=== PATIENT | female | born 1985 | race Caucasian/White ===

== ENCOUNTER 2016-04-08 13:40 | Inpatient (IN) | payer OTHER ==
--- NOTE | 2016-04-08 14:14 | EDPHY ---
H & P Smoking Status: Never smoked Time Seen by Provider: 04/08/16 13:55 HPI/ROS: CHIEF COMPLAINT: Depression, feeling suicidal HISTORY OF PRESENT ILLNESS: 30-year-old female presents to the emergency department voluntarily feeling depressed and suicidal. Patient has been depressed for quite some time. They recently increased her Prozac to 30 mg daily. She states that she has been contemplating suicide and her plan is to put a plastic bag over her head with a container of Helium. No previous suicide attempts in the past. She has been hospitalized for mental illness in 2003 and 2011. Denies homicidal ideation. Denies auditory or visual hallucinations. Currently she has no physical complaints. She does smoke marijuana however no other substance abuse. REVIEW OF SYSTEMS: Constitutional: No fever, no chills. Eyes: No double or blurry vision. ENT: No sore throat. Respiratory: No cough, no shortness of breath. Cardiac: No chest pain. Gastrointestinal: No abdominal pain, vomiting or diarrhea. Genitourinary: No dysuria. Musculoskeletal: No neck or back pain. Skin: No rashes. Neurological: No headache. (Sandra Abbott) Past Medical/Surgical History: Depression (Sandra Abbott) Social History: Works as an production administrative assistant at [employer] (Sandra Abbott) Physical Exam: General Appearance: Alert, no distress. Eyes: Pupils equal and round. Extraocular motions are all intact. ENT: Mouth: Mucous membranes moist. Respiratory: No wheezing, rhonchi, or rales, lungs are clear to auscultation. Cardiovascular: Regular rate and rhythm. Gastrointestinal: Abdomen is soft and nontender, no masses, no rebound or guarding, bowel sounds normal. Neurological: Alert and oriented x 3, cranial nerves II through XII grossly intact Skin: Warm and dry, no rashes. Musculoskeletal: Nontender to palpate along the cervical, thoracic or lumbar spine. Neck is supple. Extremities: Full range of motion and no peripheral edema. Psychiatric: Patient is oriented X 3, there is no agitation. (Sandra Abbott) Constitutional: Initial Vital Signs Temperature (C) 36.4 C 04/08/16 13:41 Heart Rate 90 04/08/16 13:41 Respiratory Rate 16 04/08/16 13:41 Blood Pressure 131/85 H 04/08/16 13:41 O2 Sat (%) 98 04/08/16 13:41 O2 Delivery Mode Room Air O2 (L/minute) 98 Allergies/Adverse Reactions: Penicillins Allergy (Intermediate, Verified 04/08/16 13:45) Hives Home Medications: Medication Instructions Recorded FLUOXETINE HCL [FLUOXETINE HCL] 10 mg PO DAILY 04/08/16 Fluoxetine HCl [Fluoxetine HCl] 20 mg PO DAILY 04/08/16 Medical Decision Making ED Course/Re-evaluation: 30-year-old female presents to the emergency department feeling depressed and suicidal. She has been placed on a detainer by myself and once she is medically clear will be evaluated by mental health. (Sandra Abbott) Care assumed by me from JUJU Abbott. Patient is pending mental health evaluation. Patient seen by mental health. She requires placement. I have completed the M1 hold. They will for placement. 2030 patient has been accepted to [facility] with [address] under . I have completed the EMTALA. (Yonathan Velazquez) Differential Diagnosis: Depression including functional and major depression, situational depression, medication side effect, drugs and alcohol abuse. (Sandra Abbott) Care Turn Over: Care will be turned over to Dr. Velazquez for disposition and plan. (Sandra Abbott ) - Data Points Laboratory Results: Laboratory Results 04/08/16 14:35 04/08/16 14:35 04/08/16 04/08/16 04/08/16 14:35 14:35 14:35 WBC 5.07 10^3/uL 10^3/uL (3.80-9.50) RBC 4.71 10^6/uL 10^6/uL (4.18-5.33) Hgb 9.3 g/dL L g/dL (12.6-16.3) Hct 31.8 % L % (38.0-47.0) MCV 67.5 fL L fL (81.5-99.8) MCH 19.7 pg L pg (27.9-34.1) MCHC 29.2 g/dL L g/dL (32.4-36.7) RDW 17.1 % H % (11.5-15.2) Plt Count 370 10^3/uL 10^3/uL (150-400) MPV 10.2 fL fL (8.7-11.7) Neut % (Auto) 55.6 % % (39.3-74.2) Lymph % (Auto) 32.7 % % (15.0-45.0) [place] % (Auto) 9.7 % % (4.5-13.0) Eos % (Auto) 1.2 % % (0.6-7.6) Baso % (Auto) 0.8 % % (0.3-1.7) Nucleat RBC Rel Count 0.0 % % (0.0-0.2) Absolute Neuts (auto) 2.82 10^3/uL 10^3/uL (1.70-6.50) Absolute Lymphs (auto) 1.66 10^3/uL 10^3/uL (1.00-3.00) Absolute Monos (auto) 0.49 10^3/uL 10^3/uL (0.30-0.80) Absolute Eos (auto) 0.06 10^3/uL 10^3/uL (0.03-0.40) Absolute Basos (auto) 0.04 10^3/uL 10^3/uL (0.02-0.10) Absolute Nucleated RBC 0.00 10^3/uL 10^3/uL (0-0.01) Immature Gran % 0.0 % % (0.0-1.1) Immature Gran # 0.00 10^3/uL 10^3/uL (0.00-0.10) Platelet Estimate ADEQUATE (ADEQ) Large Platelets PRESENT H Hypochromasia 3+ H Microcytic Cells 2+ H Elliptocytes 1+ H Acanthocytes (Spur) 2+ H Smear Review By Pending Sodium 138 mEq/L mEq/L (134-144) Potassium 3.8 mEq/L mEq/L (3.5-5.2) Chloride 103 mEq/L mEq/L (97-110) Carbon Dioxide 23 mEq/l mEq/l (22-31) Anion Gap 12 mEq/L mEq/L (8-16) BUN 11 mg/dL mg/dL (7-23) Creatinine 0.9 mg/dL mg/dL (0.6-1.0) Estimated GFR > 60 Glucose 84 mg/dL mg/dL (70-100) Calcium 9.9 mg/dL mg/dL (8.5-10.4) Urine Opiates Screen NEGATIVE ng/mL ng/mL (NEGATIVE) Urine Barbiturates NEGATIVE ng/mL ng/mL (NEGATIVE) Ur Phencyclidine Scrn NEGATIVE ng/mL ng/mL (NEGATIVE) Ur Amphetamines Screen NEGATIVE ng/mL ng/mL (NEGATIVE) U Benzodiazepines Scrn NEGATIVE ng/mL ng/mL (NEGATIVE) Urine Cocaine Screen NEGATIVE ng/mL ng/mL (NEGATIVE) U Marijuana (THC) Screen NEGATIVE ng/mL ng/mL (NEGATIVE) Departure - Departure Disposition: [facility] IP Clinical Impression: Suicidal ideation Depression Qualifiers: Depression Type: unspecified Qualified Code(s): F32.9 - Major depressive disorder, single episode, unspecified
[2016-04-08 15:37] LABS: ADD DIFF? NO; ADD MORPH? YES; ADD SCAN? NO; ATYPICAL LYMPHOCYTE FLAG 20 (0-99); FRAGMENT RBC FLAG 20 (0-99); HEMATOCRIT 31.8 % (38.0-47.0); HEMOGLOBIN 9.3 g/dL (12.6-16.3); LEFT SHIFT FLG 0 (0-99); LIPEMIA HEMOLYSIS FLAG 70 (0-99); MEAN CELL HEMOGLOBIN 19.7 pg (27.9-34.1); MEAN CELL HEMOGLOBIN CONCENTR. 29.2 g/dL (32.4-36.7); MEAN PLATELET VOLUME 10.2 fL (8.7-11.7); PLATELET CLUMPS FLAG 0 (0-99); PLATELET COUNT 370 10^3/uL (150-400); RED BLOOD CELL COUNT 4.71 10^6/uL (4.18-5.33); RED CELL DISTRIBUTION WIDTH 17.1 % (11.5-15.2)
[2016-04-08 15:41] LABS: ANION GAP 12 mEq/L (8-16); CALCIUM 9.9 mg/dL (8.5-10.4); CARBON DIOXIDE 23 mEq/l (22-31); CHLORIDE 103 mEq/L (97-110); CREATININE 0.9 mg/dL (0.6-1.0); GLOMERULAR FILTRATION RATE > 60; GLUCOSE 84 mg/dL (70-100); POTASSIUM 3.8 mEq/L (3.5-5.2); SODIUM 138 mEq/L (134-144)
[2016-04-08 15:42] LABS: MEAN CELL VOLUME 67.5 fL (81.5-99.8)
[2016-04-08 16:06] LABS: PHENCYCLIDINE URINE BCH < 6 ng/ml (NEGATIVE); PHENCYCLIDINE URINE BCH NEGATIVE (NEGATIVE); TETRAHYDROCANNABINOL URINE 46 ng/mL (NEGATIVE); TETRAHYDROCANNABINOL URINE NEGATIVE (NEGATIVE)
[2016-04-08 16:17] LABS: ACANTHOCYTES 2+; ELLIPTOCYTES 1+; HYPOCHROMIA 3+; LARGE PLATELETS PRESENT; MICROCYTES 2+; PLATELET ESTIMATE ADEQUATE (ADEQ)
[2016-04-08] MEDS ORDERED: ACETAMINOPHEN 325 MG TAB PO PRN ×2 (20:34→21:57)
[2016-04-08] MEDS ORDERED: OLANZapine DISINTEGR 10 MG TAB PO PRN ×2 (20:34→21:57)
[2016-04-08] MEDS ORDERED: LORazepam 0.5 MG TAB PO PRN (20:34)
[2016-04-08] MEDS ORDERED: MAGNESIUM HYDROXIDE 30 ML UDCUP PO PRN ×2 (20:34→21:57)
[2016-04-08] MEDS ORDERED: NICOTINE POLACRILEX 2 MG GUM B PRN ×2 (20:34→21:57)
[2016-04-08] MEDS ORDERED: MAG HYDROX/AL HYDROX/SIMETH 30 ML UDCUP PO PRN ×2 (20:34→21:57)
[2016-04-09] MEDS: LORazepam 0.5 MG TAB PO PRN (00:12)
[2016-04-09] MEDS: DULoxetine 20 MG CAP PO SCH (11:48)
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
[2016-04-09 18:55] LABS: HEMATOCRIT 32.5 % (38.0-47.0)
--- NOTE | 2016-04-09 19:07 | BCON ---
INTERNAL MEDICINE CONSULTATION DATE OF CONSULTATION: 04/09/[address] Frye. REASON FOR REFERRAL: Medical clearance for inpatient behavioral health stay. HISTORY OF PRESENT ILLNESS: Ms. Grey came to the emergency department with worsening depression and suicidal ideation. She was evaluated by the mental health team and admitted for further psychiatric care. She currently denies any acute medical complaints. PAST MEDICAL HISTORY: She reports a history of pulmonary embolus when she was taking control pills, and she has a history of an Achilles tendon injury and surgical repair. She also reports that she has had chronic anemia. MEDICATIONS: She was only taking fluoxetine. ALLERGIES: There is an allergy listed to penicillins. SOCIAL HISTORY: She lives with a roommate. She has a stable boyfriend. She has been a marijuana user, but over the past 6 weeks decreased from daily to weekly. She uses occasional alcohol. She is not a tobacco smoker. Her alcohol use had increased in the weeks leading up to her presentation with depression. FAMILY HISTORY: Noncontributory other than mention of a brother with anxiety. REVIEW OF SYSTEMS: She had some weight gain while she was smoking more marijuana, but that has resolved. She denies fevers, chills, cough, dyspnea, chest pain, palpitations, nausea, vomiting, constipation, diarrhea, dysuria, or urinary frequency. She denies joint pain or joint swelling. She does report fatigue. Otherwise, a 10-point review of systems is negative. PHYSICAL EXAMINATION: VITAL SIGNS: Blood pressure is 134/80, heart rate is 95 , respiratory rate is 14, oxygen saturation is 100% on room air, and temperature is 36.4 degrees centigrade. Her weight is 65.8 kg for a body mass index of 23.4. GENERAL: This is a well-nourished, well-developed woman who appears her chronologic age. Cooperative and in no acute distress. HEENT: Extraocular movements are intact. Pupils are equal, round, and reactive to light. Mucous membranes are moist. Dentition is in good condition. NECK: Supple. HEART: There is a regular rate and rhythm, with no murmurs, rubs, or gallops. LUNGS: Clear to auscultation bilaterally. ABDOMEN: Soft, nontender , and nondistended, with normoactive bowel sounds. EXTREMITIES: There is no cyanosis, clubbing, or edema. NEUROLOGIC: She is alert and oriented x3. Cranial nerves 2-12 are grossly intact. There is no focal weakness. Sensation is intact to light touch, and her gait is within normal limits. LABORATORY STUDIES: Drawn in the emergency department: CBC revealed anemia, with a hemoglobin of 9.3 and a hematocrit of 31.8. It was microcytic, with an MCV of 67.5. She had abnormal cells, with large platelets, hypochromasia, microcytic cells, elliptocytes, and acanthocytes. Serum chemistries revealed normal renal function and electrolytes. Toxicology screen in the urine was negative for any substances of abuse. ASSESSMENT AND RECOMMENDATIONS: 1. Mental health issues. Pending further evaluation and management per Psychiatry and the mental health team. 2. Microcytic anemia. Her red cell indices and abnormal red cell morphology are consistent with thalassemia. However, she also might have iron deficiency. She does report that she has heavy menstrual cycles. I have ordered an iron panel, a ferritin, a repeat CBC, and a reticulocyte count to rule out iron deficiency. If she does not have iron deficiency and she has a high reticulocyte count, then her presentation would be consistent with thalassemia. She could follow up with her primary care provider and have genetic testing and hemoglobin electrophoresis to establish the diagnosis. If she is iron deficient, then the likely source would be menstrual bleeding, and she could follow up with gynecology or primary care regarding that issue. I see no medical contraindications to the patient's continued stay on the inpatient behavioral health unit or to any psychiatric medications or procedures. Thank you very much for including me in the care of this patient. Please do not hesitate to contact me or the hospitalist service should there be need for further medical evaluation. /[id number]/MODL MTDD
[2016-04-10] MEDS: DULoxetine 20 MG CAP PO SCH ×2 (08:16→20:48)
--- NOTE | 2016-04-10 11:00 | SOAPPROG ---
SOAP Progress Note Assessment/Plan: Assessment: Pt is a 30 y/o S C female with a long hx of depression with multiple failed med trials and inconsistent psych follow up who was put on PRzac 5 weeks ago and recently had an increase in dose to 30mg QD and had increasing SI with a plan. She was put on an M1 for danger to self. She was started on Cymbalta 20mg DAILY 04/09/14 and reports feeling tried and has a mild tremor which she stated she had with the Prozac but that it went away after 2 weeks. Plan:Pt's M1 is up tomorrow-she will think about signing in vol or d/c'ing if she feels safe will increase Cymbalta to 20mg BID 04/10/16 10:56 Subjective: "Depressed but not worse than usual." Objective: Vital Signs Temp Pulse Resp BP Pulse Ox 36.4 C 78 14 118/78 100 04/10/16 06:15 04/10/16 06:15 04/10/16 06:15 04/10/16 06:15 04/10/16 06:15 Laboratory Results 04/09/16 15:00 Pt is A+O x4 mood--"Depressed" affect=appr do S/H I no A/V H' slept 10.5 hours appetite and energy level are low memory-intact no sx of psychosis/yoel thoughts-logical, coherent speech-wnl no FRITZ I/J-good - Time Spent With Patient Time Spent With Patient: 20' - Pending Discharge Pending Discharge Within 24 Hours: No Pending Discharge Within 48 Hours: No ICD10 Worksheet Patient Problems: Problems Problem Status Onset Depression Acute Suicidal ideation Acute
[2016-04-10 12:58] LABS: HEMATOCRIT 31.6 % (38.0-47.0); HEMOGLOBIN 9.1 g/dL (12.6-16.3); MEAN CELL HEMOGLOBIN 19.4 pg (27.9-34.1); RED BLOOD CELL COUNT 4.7 10^6/uL (4.18-5.33); RED CELL DISTRIBUTION WIDTH 17.2 % (11.5-15.2)
[2016-04-10 12:59] LABS: MEAN CELL HEMOGLOBIN CONCENTR. 28.8 g/dL (32.4-36.7); MEAN CELL VOLUME 67.2 fL (81.5-99.8)
[2016-04-10 17:46] LABS: % SATURATION 3 % (20-55); TOTAL IRON BINDING CAPACITY 450 ug/dL (260-490)
[2016-04-10 18:13] LABS: FERRITIN - BCH 4.8 ng/mL (6.2-264.0)
--- NOTE | 2016-04-10 19:50 | SOAPPROG ---
SOAP Progress Note Assessment/Plan: Assessment: Iron-deficiency anemia. Starting iron supplement FeSO4 325 mg QD. She should continue for at least a month and then be retested. She should follow-up with PCP or experience specialist re menstrual blood loss, or other possible sources of blood loss. She does not have thalassemia. Discussed with her nurse and asked im to inform her. 04/10/16 19:47 Subjective: Reviewed labs. Very iron-deficient. Objective: Vital Signs Temp Pulse Resp BP Pulse Ox 36.4 C 78 14 118/78 100 04/10/16 06:15 04/10/16 06:15 04/10/16 06:15 04/10/16 06:15 04/10/16 06:15 Laboratory Results 04/10/16 11:15 ICD10 Worksheet Patient Problems: Problems Problem Status Onset Depression Acute Suicidal ideation Acute
[2016-04-10] MEDS: LORazepam 0.5 MG TAB PO PRN (20:47)
[2016-04-11 06:29] VITALS: BP 116/75; PULSE 75; RESP 12; TEMP 98.1; O2SAT 98
[2016-04-11] MEDS: DULoxetine 20 MG CAP PO SCH (08:30)
[2016-04-11] MEDS ORDERED: FERROUS SULFATE 325 MG TAB PO SCH (09:00)
--- NOTE | 2016-04-14 14:23 | BDS ---
CHIEF COMPLAINT: "I've been feeling consistently worse over the past few weeks. " HISTORY OF PRESENT ILLNESS: The patient is a 30-year-old female who is currently in a long-term relationship with a boyfriend, who is employed and lives with a male roommate, who has a 15-year history of major depressive disorder. The patient has been on multiple medications for depression in the past. She presented to the ED voluntarily, reported feeling depressed with suicidal ideation. She reported she started seeing a new psychiatrist 5-6 weeks ago, Dr. Nicole De La Rosa, and started on Prozac. Her dose was recently increased to 30 mg daily. She has been feeling worse and having thoughts of wanting to kill herself by suffocating herself and breathing in helium. She states she researched that on the Internet a few years ago. She has no suicide history but reports she has been having suicidal ideation "forever." She reports increased sleep or appetite, low energy level, anhedonia, feels hopeless, helpless, worthless. She has been drinking 2-3 drinks of whiskey at night. She recently decreased her THC use from daily to once a week. ADMISSION DIAGNOSES: 1. Major depressive disorder, recurrent, severe, without psychosis. 2. Alcohol use disorder, mild cannabis use disorder, mild, no medical problems. [place] V: On admission was 20. HOSPITAL COURSE: The patient was started on Cymbalta 20 and increased to 20 mg twice daily. On the day of discharge, it was changed to 60 mg daily. She attended groups for coping skills. She had visitors. She denied being suicidal throughout her hospitalization except for the 1st day. Her labs showed her hemoglobin was low at 9.1, hematocrit at 31.6. MCV low at 67.2. She was seen by the hospitalist and started on iron tablets. U-tox is negative. Electrolytes were normal. Iron was low at 14, iron saturation low at 3 and ferritin low at 4.8. She was diagnosed with iron deficiency anemia by Dr. Urrutia and was started on iron 325 mg daily. She does not have thalassemia. Once her M1 was up , she requested discharge. She was safe for discharge. She had a place to go and no suicidal ideation. Her sleep was normal. Her appetite and energy level were improved. She denied any symptoms of psychosis or yoel. DISCHARGE MEDICATIONS: Cymbalta 60 mg daily, ferrous sulfate 325 mg daily for iron deficiency anemia. MENTAL STATUS ON DISCHARGE: Patient is alert and oriented x4. Mood is euthymic. Affect is appropriate. No suicidal or homicidal ideation. No auditory or visual hallucinations. Appetite and energy level are increased. Patient is sleeping well. Memory, concentration, fund of knowledge, IQ are within normal limits. No symptoms of psychosis or yoel. Thoughts logical and coherent. Speech normal rate, rhythm. No loosening of associations. Insight and judgment are good. DIAGNOSIS ON DISCHARGE: 1. Major depressive disorder, recurrent, severe, without psychosis. 2. Alcohol use disorder, mild cannabis use disorder, mild 3. Iron deficiency anemia. Global assessment of functioning on discharge is 55. PLAN: Patient will follow up with her therapist whom she was seeing in the past , Barbara Jurado and also will see Dr. De La Rosa. She had appointments with both set up by the pet caretaker. She was medically and psychiatrically stable for discharge and was discharged voluntarily. /[id number]/MODL MTDD
== END 2016-04-11 13:20 | disposition home or self-care (01) | DRG 885 ==
LOC: BBEH 21:50
PROVIDERS: ADMIT Psychiatry & Neurology Psychiatry; ATTEND Psychiatry & Neurology Psychiatry
DX: F33.2 Major depressive disorder, recurrent severe without psychotic features (principal); D50.9 Iron deficiency anemia, unspecified; Z86.711 Personal history of pulmonary embolism; F12.90 Cannabis use, unspecified, uncomplicated; Z72.89 Other problems related to lifestyle
CPT/HCPCS: 80307; G0480